=== PATIENT | female | born 2000 | race Caucasian/White ===

== ENCOUNTER → 2025-05-07 | Outpatient (CLI) | payer OTHER ==
[~2025-05-07] MED LIST: PROHANCE 279.3MG/ML 15ML VIAL ONE
== END ==
LOC: M PLAIMG 07:54
DX: N83.201 Unspecified ovarian cyst, right side (principal); N80.9 Endometriosis, unspecified; N94.89 Other specified conditions associated with female genital organs and menstrual cycle; N70.11 Chronic salpingitis
CPT/HCPCS: 72197; A9579